=== PATIENT | male | born 1975 | race Caucasian/White ===

== ENCOUNTER 2017-04-16 07:37 | Outpatient (CLI) | payer OTHER ==
--- NOTE | 2017-04-16 14:41 | MRI Report ---
EXAM: MRI CERVICAL SPINE WITHOUT CONTRAST EXAM DATE: 04/16/2017 08:53 AM. CLINICAL HISTORY: Skin anesthesia. Low back pain. COMPARISONS: None. TECHNIQUE: Multiplanar, multisequence T1-weighted and fluid-sensitive sequences of the cervical spine without contrast. Other: None. FINDINGS: Neurologic Structures: The visualized posterior fossa structures are unremarkable. No signal abnormal ity in the visualized spinal cord. Alignment: No scoliosis or spondylolisthesis. Bone Marrow: No gross fractures or bone lesions. No marrow edema. Interspace Levels/Facets: C1-C2: Unremarkable. C2-C3: Unremarkable. C3-C4: Uncovertebral osteophytes result in mild right foraminal narrowing. C4-C5: Mild left facet osteoarthritis has no neurologic consequence. C5-C6: A mild posterior disk/osteophyte complex and ligamentum flavum hypertrophy result in mild spin al canal and right foraminal narrowing. C6-C7: Uncovertebral osteophytes result in moderate right foraminal narrowing. C7-T1: Unremarkable. Musculature: Normal. No edema or fatty atrophy. Other: The paravertebral and prevertebral soft tissues are normal. IMPRESSION: 1. Mild right foraminal narrowing at C3-C4 due to osteophytes. 2. Mild spinal canal and right foraminal narrowing at C5-C6 due to disk and posterior element degener ative changes. 3. Moderate right foraminal narrowing at C6-C7 due to uncovertebral osteophytes. [facility] Referring Provider Line: [phone] SITE ID: [id number]
--- NOTE | 2017-04-16 14:41 | MRI Report ---
EXAM: MRI LUMBAR SPINE WITHOUT CONTRAST EXAM DATE: 04/16/2017 08:27 AM. CLINICAL HISTORY: Low back pain. Bilateral leg and thigh numbness and tingling for 5 months. COMPARISON: None. TECHNIQUE: Multiplanar, multisequence T1-weighted and fluid-sensitive sequences of the lumbar spine f rom T12 to S1 without contrast. Other: None. FINDINGS: Spinal Cord: The conus terminates at L1. The conus medullaris and cauda equina are unremarkable. Alignment: No scoliosis or spondylolisthesis. Bone Marrow: Five [id number] lumbar vertebral bodies are assumed. No gross fractures or bone les ions. No bone marrow edema. Disk Levels/Facets: T11-T12: Unremarkable. T12-l1: Unremarkable. L1-L2: Unremarkable. L2-L3: Unremarkable. L3-L4: A small right foraminal area protrusion results in minimal right foraminal narrowing. L4-L5: Unremarkable. L5-S1: The disk is desiccated with mild height loss. A broad-based posterior disk protrusion and mild facet hypertrophy cause minimal spinal canal and right foraminal narrowing. Musculature: Normal. No edema or fatty atrophy. Other: The partially visualized retroperitoneum is unremarkable. IMPRESSION: 1. Minimal right foraminal narrowing at L3-L4 due to disk protrusion. 2. Minimal spinal canal and right foraminal narrowing at L5-S1 due to disk and posterior element dege nerative changes. Comment: The following findings are so common in adults without low back pain that while we report th eir presence, they must be interpreted with caution and in the context of the clinical situation. (Re adilene Perezk et al, Spine 2001) Prevalence of findings in patients without low back pain: Disk degeneration (any evidence): 92% Disk desiccation/T2 signal loss: 83% Disk height loss: 56% Disk bulge: 64% Disk protrusion: 32% Annular tear/high intensity zone: 38% [facility] Referring Provider Line: [phone] SITE ID: [id number]
== END 2017-04-16 07:38 | disposition home or self-care (01) ==
LOC: DI 07:37
PROVIDERS: ATTEND General Practice
DX: M51.27 Other intervertebral disc displacement, lumbosacral region (principal); M51.37 Other intervertebral disc degeneration, lumbosacral region; M51.26 Other intervertebral disc displacement, lumbar region; M47.897 Other spondylosis, lumbosacral region; M47.892 Other spondylosis, cervical region; M50.322 Other cervical disc degeneration at C5-C6 level
CPT/HCPCS: 72141; 72148